=== PATIENT | female | born 1960 | race Caucasian/White ===

== ENCOUNTER 2018-06-03 06:21 | Inpatient (IN) | payer OTHER, BC ==
[~2018-06-03 06:21] MED LIST: CEFAZOLIN 2 GM/50 ML (PMX) 50 ML IVPB
[2018-06-03] MEDS ORDERED: DEXAMETHASONE 4 MG/ML 5 ML INJ (07:00)
[2018-06-03] MEDS ORDERED: BUPIVACAINE 0.5% (SDV) 30 ML INJ ×2 (09:32→13:32)
[2018-06-03] MEDS ORDERED: ROCURONIUM 50 MG INJ (09:37)
[2018-06-03] MEDS ORDERED: ONDANSETRON 4 MG INJ (09:37)
[2018-06-03] MEDS ORDERED: LIDOCAINE 2% (SDV) 5 ML INJ (09:37)
[2018-06-03] MEDS ORDERED: NEOSTIGMINE 3 MG/3 ML SYRINGE (09:37)
[2018-06-03] MEDS ORDERED: GLYCOPYRROLATE 0.4 MG INJ (09:37)
[2018-06-03] MEDS ORDERED: FENTAnyl 50 MCG/ML VIAL ×2 (09:37→10:21)
[2018-06-03] MEDS ORDERED: PROPOFOL 20 ML (09:37)
[2018-06-03] MEDS ORDERED: MIDAZOLAM 1 MG/ML 2 ML INJ (09:37)
[2018-06-03] MEDS ORDERED: SUCCINYLCHOLINE CHLORIDE 100 MG/5 ML SYG IV (09:38)
[2018-06-03] MEDS ORDERED: hydrALAzine 20 MG INJ (11:06)
[2018-06-03] MEDS ORDERED: LIDOCAINE 4% CR (11:21)
[2018-06-03] MEDS ORDERED: FENTAnyl 50 MCG/ML VIAL IV ×2 (14:30)
[2018-06-03] MEDS ORDERED: METOCLOPRAMIDE 10 MG INJ IV (14:30)
[2018-06-03] MEDS ORDERED: hydrALAzine 20 MG INJ IV (14:30)
[2018-06-03] MEDS ORDERED: ONDANSETRON 4 MG INJ IV (14:30)
[2018-06-03] MEDS ORDERED: LABETALOL HCL 20MG INJ IV (14:30)
[2018-06-03] MEDS ORDERED: HYDROmorphONE 1 MG/5 ML IV SYRINGE IV (14:30)
[2018-06-03] MEDS: HYDROmorphONE 1 MG/5 ML IV SYRINGE IV ×2 (15:28→15:52)
[2018-06-03] MEDS ORDERED: morphine 2 MG INJ IV (15:30)
[2018-06-03 16:12] LABS: ADD MAN DIFF? NO
[2018-06-03 16:13] LABS: WHITE BLOOD COUNT 12.7 10^3/ul (4.8-10.8)
[2018-06-03 16:13] LABS: ABNORMAL IP MESSAGE 1; BASOPHILS % 0.2 % (0.0-2.0); HEMATOCRIT 44.4 % (37.0-47.0); HEMOGLOBIN 14.6 g/dl (12.0-16.0); LYMPHOCYTES # 0.2 10^3/ul (0.8-2.9); LYMPHOCYTES % 1.8 % (15.0-51.0); MEAN CORPUSCULAR HEMOGLOBIN 27.9 pg (29.0-33.0); MEAN CORPUSCULAR HGB CONC 32.9 g/dl (32.0-37.0); MEAN CORPUSCULAR VOLUME 84.7 fl (82.0-101.0); MONOCYTE # 0.7 10^3/ul (0.3-0.9); MONOCYTES % 5.7 % (0.0-11.0); NEUTROPHIL # 11.7 10^3/ul (1.6-7.5); NEUTROPHILS % 91.9 % (39.0-77.0); PLATELET COUNT 180 10^3/UL (140-415); RED BLOOD COUNT 5.24 10^6/ul (4.20-5.40); RED CELL DISTRIBUTION WIDTH 13.9 % (11.5-14.5)
[2018-06-03 16:18] LABS: HOLD TRANSMISSIONS 1; POSITIVE DIFF @See below
[2018-06-03] MEDS: FENTAnyl 50 MCG/ML VIAL IV ×2 (17:10→17:32)
[2018-06-03] MEDS: CEFAZOLIN 2 GM/50 ML (PMX) 50 ML IVPB (18:50)
[2018-06-03] MEDS: D5-NS + KCL 20 MEQ 1,000 ML IV (18:54)
[2018-06-03] MEDS: ATORVASTATIN 20 MG TAB PO (21:41)
[2018-06-03] MEDS: FAMOTIDINE 20 MG TAB PO (21:41)
[2018-06-03] MEDS: ONDANSETRON 4 MG INJ IV (22:54)
[2018-06-04] MEDS: D5-NS + KCL 20 MEQ 1,000 ML IV ×3 (01:16→20:18)
[2018-06-04] MEDS: CEFAZOLIN 2 GM/50 ML (PMX) 50 ML IVPB ×2 (01:57→11:11)
[2018-06-04] MEDS: morphine SULFATE/PF (2 MG/2 ML) SYG IV (04:22)
[2018-06-04] MEDS: ONDANSETRON 4 MG INJ IV (04:22)
[2018-06-04 05:10] LABS: ADD MAN DIFF? NO
[2018-06-04 05:17] LABS: WHITE BLOOD COUNT 10.7 10^3/ul (4.8-10.8)
[2018-06-04 05:17] LABS: ABNORMAL IP MESSAGE 1; BASOPHILS % 0.1 % (0.0-2.0); HEMATOCRIT 41.3 % (37.0-47.0); HEMOGLOBIN 13.5 g/dl (12.0-16.0); LYMPHOCYTES # 0.4 10^3/ul (0.8-2.9); LYMPHOCYTES % 3.4 % (15.0-51.0); MEAN CORPUSCULAR HEMOGLOBIN 27.9 pg (29.0-33.0); MEAN CORPUSCULAR HGB CONC 32.7 g/dl (32.0-37.0); MEAN CORPUSCULAR VOLUME 85.3 fl (82.0-101.0); MEAN PLATELET VOLUME 11.5 fl (7.4-10.4); MONOCYTE # 0.5 10^3/ul (0.3-0.9); NEUTROPHIL # 9.8 10^3/ul (1.6-7.5); NEUTROPHILS % 91.1 % (39.0-77.0); PLATELET COUNT 198 10^3/UL (140-415); RED BLOOD COUNT 4.84 10^6/ul (4.20-5.40); RED CELL DISTRIBUTION WIDTH 14.3 % (11.5-14.5)
[2018-06-04 05:43] LABS: ANION GAP 7 (5-13); BLOOD UREA NITROGEN 11 mg/dl (7-20); CALCIUM 8.5 mg/dl (8.4-10.2); CARBON DIOXIDE 27 mmol/L (21-31); CHLORIDE 105 mmol/L (97-110); CREATININE 0.85 mg/dl (0.44-1.00); Estimated GFR > 60 mL/min (>60); GLUCOSE 152 mg/dl (70-220); SODIUM 139 mmol/L (135-144)
[2018-06-04 05:47] LABS: POSITIVE DIFF @See below
[2018-06-04] MEDS: BENAZEPRIL 20 MG TAB PO (10:11)
[2018-06-04] MEDS: FAMOTIDINE 20 MG TAB PO ×2 (10:12→20:18)
[2018-06-04] MEDS: HYDROCODONE/APAP (5/325) TAB PO ×2 (10:12→17:29)
[2018-06-04] MEDS: OXYBUTYNIN (XL) 5 MG TAB PO (10:12)
[2018-06-04] MEDS: ACETAMINOPHEN 325 MG TAB PO (14:32)
[2018-06-04] MEDS: ATORVASTATIN 20 MG TAB PO (20:18)
[2018-06-05] MEDS: HYDROCODONE/APAP (5/325) TAB PO ×3 (00:22→13:23)
[2018-06-05 05:10] LABS: ADD MAN DIFF? NO
[2018-06-05 05:17] LABS: WHITE BLOOD COUNT 10.6 10^3/ul (4.8-10.8)
[2018-06-05 05:17] LABS: BASOPHILS % 0.2 % (0.0-2.0); EOSINOPHILS % 0.3 % (0.0-7.0); HEMATOCRIT 42.4 % (37.0-47.0); HEMOGLOBIN 13.3 g/dl (12.0-16.0); LYMPHOCYTES # 0.9 10^3/ul (0.8-2.9); LYMPHOCYTES % 8.1 % (15.0-51.0); MEAN CORPUSCULAR HEMOGLOBIN 27.4 pg (29.0-33.0); MEAN CORPUSCULAR HGB CONC 31.4 g/dl (32.0-37.0); MEAN CORPUSCULAR VOLUME 87.2 fl (82.0-101.0); MEAN PLATELET VOLUME 11.5 fl (7.4-10.4); MONOCYTE # 0.6 10^3/ul (0.3-0.9); MONOCYTES % 5.3 % (0.0-11.0); NEUTROPHIL # 9.1 10^3/ul (1.6-7.5); NEUTROPHILS % 85.8 % (39.0-77.0); PLATELET COUNT 178 10^3/UL (140-415); RED BLOOD COUNT 4.86 10^6/ul (4.20-5.40); RED CELL DISTRIBUTION WIDTH 14.5 % (11.5-14.5)
[2018-06-05 05:44] LABS: ANION GAP 7 (5-13); BLOOD UREA NITROGEN 9 mg/dl (7-20); CALCIUM 8.8 mg/dl (8.4-10.2); CARBON DIOXIDE 24 mmol/L (21-31); CHLORIDE 107 mmol/L (97-110); CREATININE 0.85 mg/dl (0.44-1.00); Estimated GFR > 60 mL/min (>60); GLUCOSE 130 mg/dl (70-220); POTASSIUM 4.1 mmol/L (3.5-5.1); SODIUM 138 mmol/L (135-144)
[2018-06-05 05:48] LABS: MAGNESIUM 2.1 mg/dl (1.7-2.5)
[2018-06-05 05:48] LABS: PHOSPHORUS 2.2 mg/dl (2.5-4.9)
[2018-06-05] MEDS: D5-NS + KCL 20 MEQ 1,000 ML IV ×3 (07:18→23:07)
[2018-06-05] MEDS: FAMOTIDINE 20 MG TAB PO ×2 (09:16→20:30)
[2018-06-05] MEDS: OXYBUTYNIN (XL) 5 MG TAB PO (09:17)
[2018-06-05] MEDS: BENAZEPRIL 20 MG TAB PO (09:17)
[2018-06-05] MEDS: DOCUSATE SODIUM 100 MG CAP PO ×2 (13:24→20:30)
[2018-06-05] MEDS: POTASSIUM PHOSPHATE 20 MEQ in SOD CHLORIDE 0.9% 250 ML IVPB (13:39)
[2018-06-05] MEDS: morphine LIQ (10 MG/5 ML) CUP PO (17:11)
[2018-06-05] MEDS: ATORVASTATIN 20 MG TAB PO (20:30)
[2018-06-06] MEDS: morphine LIQ (10 MG/5 ML) CUP PO ×2 (02:08→11:37)
[2018-06-06] MEDS: DOCUSATE SODIUM 100 MG CAP PO (09:50)
[2018-06-06] MEDS: OXYBUTYNIN (XL) 5 MG TAB PO (09:50)
[2018-06-06] MEDS: FAMOTIDINE 20 MG TAB PO (09:51)
[2018-06-06] MEDS: BENAZEPRIL 20 MG TAB PO (09:52)
[2018-06-06] MEDS: D5-NS + KCL 20 MEQ 1,000 ML IV (13:16)
[2018-06-06] MEDS: BISACODYL (EC) 5 MG TAB PO (14:18)
[2018-06-06] MEDS ORDERED: VITAMIN A & D 5 GM OINT PACKET TOP (14:42)
== END 2018-06-06 18:10 | disposition home or self-care (01) | DRG 658 ==
LOC: REC 06:21 → MS1 17:44
PROVIDERS: Surgery Surgical Oncology
PROC: 0TT14ZZ Resection of Left Kidney, Percutaneous Endoscopic Approach (ICD-10-PCS; principal; 2018-06-03 09:30)
PROC: 0GT24ZZ Resection of Left Adrenal Gland, Percutaneous Endoscopic Approach (ICD-10-PCS; 2018-06-03 09:30)
PROC: 0TB74ZZ Excision of Left Ureter, Percutaneous Endoscopic Approach (ICD-10-PCS; 2018-06-03 09:30)
PROC: 07BD4ZX Excision of Aortic Lymphatic, Percutaneous Endoscopic Approach, Diagnostic (ICD-10-PCS; 2018-06-03 09:30)
PROC: 0FB04ZX Excision of Liver, Percutaneous Endoscopic Approach, Diagnostic (ICD-10-PCS; 2018-06-03 09:30)
PROC: 0DNU4ZZ Release Omentum, Percutaneous Endoscopic Approach (ICD-10-PCS; 2018-06-03 09:30)
PROC: 0DNE4ZZ Release Large Intestine, Percutaneous Endoscopic Approach (ICD-10-PCS; 2018-06-03 09:30)
PROC: 0WBH4ZX Excision of Retroperitoneum, Percutaneous Endoscopic Approach, Diagnostic (ICD-10-PCS; 2018-06-03 09:30)
DX: C64.2 Malignant neoplasm of left kidney, except renal pelvis (principal); K76.9 Liver disease, unspecified; N39.41 Urge incontinence; R35.0 Frequency of micturition; E78.00 Pure hypercholesterolemia, unspecified; I10 Essential (primary) hypertension; Z85.3 Personal history of malignant neoplasm of breast; Z90.12 Acquired absence of left breast and nipple
CPT/HCPCS: 80048; 83735; 84100; 85025; 86850; 86900; 86901; 87086; 88307